=== PATIENT | male | born 1970 | race Hispanic/Latino ===

== ENCOUNTER 2020-11-24 20:49 | Inpatient (IN) | payer SELFPAY ==
[2020-11-24 21:09] LABS: #Basophils 0.1 thou/uL (0.0-0.2); #Eosinphils 0.3 thou/uL (0.0-0.7); #Lymphocytes 2.1 thou/uL (1.20-3.40); #Monocytes 0.5 thou/uL (0.11-0.59); #Neutrophils 2.3 thou/uL (1.40-6.50); %Basophils 1.1 % (0.0-1.0); %Eosinophils 4.9 % (0.0-10.0); %Lymphocytes 40.9 % (21.0-51.0); %Monocytes 9.2 % (0.0-10.0); %Neutrophils 43.9 % (42.0-75.0); Mean Corpuscular HGB CONC 34.7 g/dL (32.0-36.0); Mean Corpuscular Hemoglobin 31.2 pg (27.0-31.0); Mean Corpuscular Volume 89.8 fL (78.0-98.0); Mean Platelet Volume 6.9 fL (7.4-10.4); Platelet Count 211 thou/uL (130-400); RBC Distribution Width 11.8 % (11.5-14.5); Red Blood Cell (RBC) Count 5.13 mill/uL (4.70-6.10); White Blood Cell (WBC) Count 5.2 thou/uL (4.8-10.8)
[2020-11-24 21:29] LABS: ALT (SGPT) 444 U/L (8-55); AST (SGOT) 236 U/L (5-34); Albumin 4.4 g/dL (3.5-5.0); Alkaline Phosphatase 286 U/L (40-110); Anion Gap 10 mmol/L (10-20); BUN (Urea Nitrogen) 16 mg/dL (8.9-20.6); Bilirubin, Total 2.2 mg/dL (0.2-1.2); Calc. Creatinine Clearance 0 mL/min (70-130); Calcium 9.5 mg/dL (7.8-10.44); Carbon Dioxide 27 mmol/L (22-29); Chloride 103 mmol/L (98-107); Glucose 131 mg/dL (70-105); Potassium 3.9 mmol/L (3.5-5.1); Protein, Total 7.4 g/dL (6.0-8.3); Sodium 136 mmol/L (136-145)
[2020-11-24] MEDS ORDERED: Morphine 4 MG/ML VIAL ONE ×2 (21:39→23:20)
[2020-11-24] MEDS ORDERED: Ondansetron PF 4 MG/2 ML Vial ONE (21:39)
[2020-11-24 21:45] LABS: Lipase 7372 U/L (8-78)
[2020-11-24] MEDS ORDERED: Acetaminophen 650 MG Suppository PR PRN (23:19)
[2020-11-24] MEDS ORDERED: Ondansetron ODT 4 MG TAB PO PRN (23:19)
[2020-11-24] MEDS ORDERED: Ondansetron PF 4 MG/2 ML Vial IVP PRN (23:19)
[2020-11-24] MEDS ORDERED: Acetaminophen 325 MG TAB PO PRN (23:19)
[2020-11-24] MEDS ORDERED: Sodium Chloride 0.9% 1,000 ML IV SCH (23:30)
[2020-11-25 01:50] VITALS: BMI 22.9
[2020-11-25 05:04] LABS: #Eosinphils 0.2 thou/uL (0.0-0.7); #Lymphocytes 1.5 thou/uL (1.20-3.40); #Monocytes 0.5 thou/uL (0.11-0.59); #Neutrophils 4.6 thou/uL (1.40-6.50); %Basophils 0.6 % (0.0-1.0); %Eosinophils 3.6 % (0.0-10.0); %Lymphocytes 21.3 % (21.0-51.0); %Monocytes 7.6 % (0.0-10.0); %Neutrophils 66.9 % (42.0-75.0); Hemoglobin 14.2 g/dL (14.0-18.0); Mean Corpuscular HGB CONC 34.3 g/dL (32.0-36.0); Mean Corpuscular Hemoglobin 31.2 pg (27.0-31.0); Mean Corpuscular Volume 90.9 fL (78.0-98.0); Mean Platelet Volume 6.9 fL (7.4-10.4); Platelet Count 184 thou/uL (130-400); RBC Distribution Width 11.8 % (11.5-14.5); Red Blood Cell (RBC) Count 4.56 mill/uL (4.70-6.10); White Blood Cell (WBC) Count 6.8 thou/uL (4.8-10.8)
[2020-11-25] MEDS ORDERED: Sodium Chloride 0.9% 1,000 ML IV SCH (05:13)
[2020-11-25] MEDS ORDERED: Ketorolac Tromethamine 30 MG/ML VIAL IVP PRN (05:14)
[2020-11-25 05:27] LABS: Anion Gap 8 mmol/L (10-20); BUN (Urea Nitrogen) 15 mg/dL (8.9-20.6); Calc. Creatinine Clearance 121 mL/min (70-130); Calcium 8.2 mg/dL (7.8-10.44); Carbon Dioxide 25 mmol/L (22-29); Chloride 106 mmol/L (98-107); Glucose 94 mg/dL (70-105); Potassium 4.2 mmol/L (3.5-5.1); Sodium 135 mmol/L (136-145)
[2020-11-25 05:40] LABS: Lipase 1886 U/L (8-78)
[2020-11-25 08:30] LABS: ALT (SGPT) 325 U/L (8-55); AST (SGOT) 125 U/L (5-34); Albumin 3.6 g/dL (3.5-5.0); Alkaline Phosphatase 235 U/L (40-110); Bilirubin, Direct 0.6 mg/dL (0.1-0.3); Bilirubin, Total 1.2 mg/dL (0.2-1.2)
[2020-11-25] MEDS: Enoxaparin Sodium 40 MG/0.4 ML SYRINGE SC SCH (09:27)
[2020-11-25] MEDS: Sodium Chloride 0.9% 1,000 ML IV SCH ×2 (10:06→18:17)
[2020-11-25 20:58] LABS: SARS-CoV-2 PCR by NAA Not Detected (NotDetected)
[2020-11-26] MEDS: Sodium Chloride 0.9% 1,000 ML IV SCH ×2 (02:48→11:13)
[2020-11-26 05:49] LABS: ALT (SGPT) 209 U/L (8-55); AST (SGOT) 65 U/L (5-34); Albumin 3.2 g/dL (3.5-5.0); Alkaline Phosphatase 194 U/L (40-110); Bilirubin, Direct 0.6 mg/dL (0.1-0.3); Bilirubin, Total 1.6 mg/dL (0.2-1.2); Protein, Total 5.6 g/dL (6.0-8.3)
[2020-11-26 05:52] LABS: ALT (SGPT) 213 U/L (8-55); AST (SGOT) 66 U/L (5-34); Albumin 3.2 g/dL (3.5-5.0); Alkaline Phosphatase 191 U/L (40-110); Anion Gap 13 mmol/L (10-20); BUN (Urea Nitrogen) 13 mg/dL (8.9-20.6); Bilirubin, Total 1.6 mg/dL (0.2-1.2); Calc. Creatinine Clearance 126 mL/min (70-130); Calcium 7.8 mg/dL (7.8-10.44); Carbon Dioxide 19 mmol/L (22-29); Chloride 108 mmol/L (98-107); Globulin 2.3 g/dL (2.4-3.5); Glucose 69 mg/dL (70-105); Lipase 473 U/L (8-78); Potassium 3.8 mmol/L (3.5-5.1); Protein, Total 5.5 g/dL (6.0-8.3); Sodium 136 mmol/L (136-145)
[2020-11-26 08:24] VITALS: TEMP 97.6
[2020-11-26] MEDS ORDERED: Ondansetron PF 4 MG/2 ML Vial ONE (08:48)
[2020-11-26] MEDS ORDERED: Dexamethasone 20 MG/5 ML VIAL ONE (08:48)
[2020-11-26] MEDS ORDERED: Lidocaine 1% PF 5 ML VIAL ONE (08:48)
[2020-11-26] MEDS ORDERED: Glycopyrrolate 0.2 MG/ML 5 ML SYRINGE ONE (08:48)
[2020-11-26] MEDS ORDERED: ePHEDrine 50 MG/ML VIAL ONE (08:48)
[2020-11-26] MEDS ORDERED: Ketorolac Tromethamine 30 MG/ML VIAL ONE (08:48)
[2020-11-26] MEDS ORDERED: Rocuronium Bromide 10 MG/ML (10ML VIAL) ONE (08:48)
[2020-11-26] MEDS ORDERED: PROPOFOL 200 MG/20 ML VIAL ONE (08:48)
[2020-11-26] MEDS ORDERED: cefOXitin Sodium/Dextrose 2 GM/50 ML BAG ONE (09:32)
[2020-11-26] MEDS ORDERED: Lidocaine 1% w/Epinephrine 1:100K 20 ML VIAL ONE (10:12)
[2020-11-26] MEDS ORDERED: Bupivacaine 0.25% HCL 30 ML VIAL ONE (10:12)
[2020-11-26] MEDS ORDERED: Iothalamate Meglumine 60% 50 ML VIAL FS ONE (10:12)
[2020-11-26] MEDS ORDERED: Fentanyl 100 MCG/2 ML VIAL ONE (10:14)
[2020-11-26] MEDS: Enoxaparin Sodium 40 MG/0.4 ML SYRINGE SC SCH (11:13)
[2020-11-26] MEDS ORDERED: Non-Formulary Medication 1 EACH PO PRN (12:20)
[2020-11-26] MEDS ORDERED: Ondansetron HCl/PF 4 MG/2 ML Vial IVP PRN (12:30)
[2020-11-26] MEDS ORDERED: Promethazine HCl 25 MG/ML VIAL IM/IV PRN (12:30)
[2020-11-26] MEDS ORDERED: Morphine 4 MG/ML VIAL SLOW IVP PRN (12:42)
[2020-11-26] MEDS ORDERED: HYDROcodone/Acetaminophen 7.5/325 mg Tablet PO PRN ×2 (12:42)
[2020-11-26] MEDS ORDERED: Morphine 2 MG/ML VIAL SLOW IVP PRN (12:42)
[2020-11-26 16:11] VITALS: BP 131/74
== END 2020-11-26 15:55 | disposition home or self-care (01) | DRG 417 ==
LOC: EDBD 20:49 → ERS 20:49 → SJJU 23:12
PROVIDERS: ADMIT Student in an Organized Health Care Education/Training Program; ATTEND Hospitalist
PROC: 0FT44ZZ Resection of Gallbladder, Percutaneous Endoscopic Approach (ICD-10-PCS; principal; 2020-11-24)
PROC: BF131ZZ Fluoroscopy of Gallbladder and Bile Ducts using Low Osmolar Contrast (ICD-10-PCS; 2020-11-24)
DX: K80.62 Calculus of gallbladder and bile duct with acute cholecystitis without obstruction (principal); K85.10 Biliary acute pancreatitis without necrosis or infection; Z20.822 Contact with and (suspected) exposure to COVID-19
CPT/HCPCS: 36415; 47532; 76705; 80048; 80053; 80076; 83690; 84484; 85025; 88304; 93005; 96374; 96375; 96376; J0694; J1100; J1650; J1885; J2270; J2405; J2704; J3010; J3490; J7050; Q9961; S0020; U0003; U0005